=== PATIENT | female | born 1965 | race Caucasian/White ===

== ENCOUNTER → 2022-10-19 08:13 | Outpatient (BNVA) | payer OTHER, SELFPAY | PROVIDERS: PCP Internal Medicine; Visit Provider Internal Medicine Rheumatology | DX: Z13.89 Encounter for screening for other disorder (principal) ==

== ENCOUNTER 2023-07-26 19:20 | Inpatient (IN) | payer OTHER, SELFPAY ==
[2023-07-26] VITALS (18 sets, daily range): BP systolic 119–134; BP diastolic 56–88; PULSE 63–86; RESP 12–20; TEMP 36.6–36.8; O2SAT 96–100; BMI 24.7
--- NOTE | ~2023-07-26 | CT_ITS ---
EXAMINATION: CT ANGIOGRAM HEAD CT ANGIOGRAM NECK CLINICAL INFORMATION: Reason for Exam l mca cva COMPARISON: Earlier noncontrast head CT TECHNIQUE: Initial noncontrast freelance art director imaging of the head and neck was performed. Comparison is made with noncontrast head CT from earlier today. Test bolus sequences followed by intravenous administration 70 mL of Omnipaque 350. Helical imaging was performed in the axial plane from the aortic arch to the skull vertex. Delayed postcontrast imaging of the head was also performed. The data was processed at the instrument technologist's workstation for generation of MIP sequences. Angled MIPs and volume rendered reformatted images were also generated at an offline 3D workstation. Stenoses are assessed in accordance with NASCET criteria unless otherwise indicated. DLP: 1442.56 mGy-cm This CT examination was performed using dose optimization techniques as appropriate, variously including the following: *Automated exposure control. *Adjustment of mA and/or kV according to patient size (this includes techniques or standardized protocols for targeted exams where dose is matched to indication/reason for exam; i.e. extremities or head). *Use of iterative reconstruction technique. FINDINGS: CT Head: There is no evidence of acute intracranial hemorrhage or edematous territorial infarction. A few foci of hypoattenuation in the periventricular and deep white matter are consistent with mild microangiopathy. Chen-white matter differentiation is preserved. The ventricles are normal in size and configuration. No evidence for obstructive hydrocephalus. No abnormal mass effect or midline shift. No extra-axial fluid collections. No pathologic intra-axial enhancement or regional oligemia. No acute soft tissue or osseous abnormalities. The mastoid air cells and paranasal sinuses are clear. CT Neck: The thyroid gland and remaining cervical soft tissues are within normal limits. Mild degenerative changes of the cervical spine. Chronic appearing mild compression deformity of the T2 superior endplate. CT Upper Chest: There is mild centrilobular emphysema and biapical scarring. There is circumferential wall thickening of the upper thoracic esophagus. Neck CTA: Aortic Arch: Normal contour and caliber. Classic 3 vessel branching pattern of the aortic arch. Great Vessel Origins: No significant stenosis of the branch origins. Right Common Carotid Artery: No focal stenosis or occlusion. Cervical Right Internal Carotid Artery: Normal opacification without focal stenosis or occlusion. Left Common Carotid Artery: No focal stenosis or occlusion. Cervical Left Internal Carotid Artery: Mild calcific atherosclerotic disease of the carotid bulb and proximal internal carotid artery without flow-limiting stenosis. Cervical Right Vertebral Artery: No focal stenosis or occlusion. Cervical Left Vertebral Artery: Dominant. No focal stenosis or occlusion. Brain CTA: Intracranial Internal Carotid Arteries: No focal stenosis or occlusion. Right Anterior Cerebral Artery: Normal A1 segment. Normal opacification of the distal KAELA segments. Left Anterior Cerebral Artery: Normal A1 segment. Normal opacification of the distal KAELA segments. Anterior Communicating Artery: Normal. Right Middle Cerebral Artery: Normal M1 segment of the MCA without focal stenosis or occlusion. Normal arborization of the distal segments. Left Middle Cerebral Artery: Normal M1 segment of the MCA without focal stenosis or occlusion. Normal arborization of the distal segments. Right Vertebral Artery: Normal V4 segment. Left Vertebral Artery: Normal V4 segment. Basilar Artery: Normal without focal stenosis or occlusion. Normal appearance of the proximal superior cerebellar arteries. Right Posterior Cerebral Artery: Normal P1 segment. Normal opacification of the distal CEMENT DESPATCH OPERATOR segments. Left Posterior Cerebral Artery: Normal P1 segment. Normal opacification of the distal CEMENT DESPATCH OPERATOR segments. Normal opacification of the superior sagittal, straight, transverse, and sigmoid sinuses. CT/CT angio head neck stroke IMPRESSION: 1. No arterial high grade stenosis or large vessel occlusion in the head or neck. 2. Circumferential wall thickening of the upper thoracic esophagus which may reflect esophagitis. Impression #1 was communicated to GONZÁLEZ Norton on 07/26/2023 at 8:11 PM
--- NOTE | ~2023-07-26 | CT_ITS ---
EXAMINATION: CT HEAD WITHOUT CONTRAST (STROKE PROTOCOL) CLINICAL INFORMATION: Stroke protocol. Right-sided weakness. COMPARISON: None available. TECHNIQUE: Contiguous axial imaging was performed from the skull base to vertex without intravenous administration of contrast. This CT examination was performed using dose optimization techniques as appropriate, variously including the following: *Automated exposure control. *Adjustment of mA and/or kV according to patient size (this includes techniques or standardized protocols for targeted exams where dose is matched to indication/reason for exam; i.e. extremities or head). *Use of iterative reconstruction technique. DLP: 636 mGy-cm FINDINGS: There is no evidence of an extra-axial collection. There is no evidence of intra-axial or extra-axial hemorrhage. The ventricles and extra-axial CSF spaces are appropriate. Chen-white matter differentiation is normal. No mass, mass effect or infarct. Review at bone windows is normal. No skull fracture. Paranasal sinuses, mastoid air cells are clear. CT/CT head for stroke IMPRESSION: Unremarkable exam. This critical result was discussed with Dr. Snyder at 1947 hours on 07/26/2023. It was ascertained that the content and urgency of the report was understood at the time of direct communication.
--- NOTE | ~2023-07-26 | CT_ITS ---
EXAMINATION: CT head/brain wo IV con CLINICAL INFORMATION: Reason for Exam post tpa headache COMPARISON: Same day CT head and CT angiogram of the head and neck TECHNIQUE: Contiguous axial imaging was performed from the skull base to vertex without intravenous contrast. Sagittal and coronal reformatted images were obtained. This CT examination was performed using dose optimization techniques as appropriate, variously including the following: * Automated exposure control * Adjustment of mA and/or kV according to patient size (this includes techniques or standardized protocols for targeted exams where dose is matched to indication/reason for exam; i.e. extremities or head) Use of iterative reconstruction technique DLP: 600.9 mGy-cm mGy-cm FINDINGS: There is no evidence of acute intracranial hemorrhage. No mass-effect or ventricular shift is noted. No acute, territorial loss of east-white differentiation. The ventricles and sulci are appropriate in size and configuration for the patient's stated age. No depressed calvarial fracture. The paranasal sinuses are well-aerated. The mastoid air cells are clear. CT/CT head/brain wo IV con IMPRESSION: No acute intracranial hemorrhage or territorial loss of east-white differentiation.
--- NOTE | ~2023-07-26 | MR_ITS ---
EXAMINATION: MR BRAIN WITHOUT CONTRAST CLINICAL INFORMATION: Stroke post TNK. COMPARISON: Head CT from 07/27/2023. TECHNIQUE: Multiplanar, multisequence imaging of the brain was performed without contrast. FINDINGS: No diffusion abnormalities are identified to suggest an acute or subacute infarct. The ventricles are normal in size. No mass effect or midline shift is seen. Nonspecific mild scattered white matter signal changes may be due to chronic microangiopathy. No extra-axial fluid collections are seen. The brainstem and cerebellum are normal. Incidental small pineal cyst noted. The gradient refocused acquisition demonstrates no pathologic magnetic susceptibility artifact to indicate underlying acute or chronic blood products. The craniovertebral junction and marrow signal are normal. The major intracranial flow voids at the level of the [place] of [place] are preserved. The dural venous sinus flow voids are maintained. The paranasal sinuses are well aerated. There is trace fluid in the mastoid air cells dependently. MR/MR head/brain wo con IMPRESSION: No acute intracranial process. Mild chronic white matter microangiopathy.
--- NOTE | ~2023-07-26 | CT_ITS ---
EXAMINATION: CT HEAD WITHOUT CONTRAST CLINICAL INFORMATION: Stroke, post TNK. COMPARISON: None. TECHNIQUE: Contiguous axial imaging was performed from the skullbase to vertex without intravenous administration of contrast. This CT examination was performed using dose optimization techniques as appropriate, variously including the following: *Automated exposure control *Adjustment of mA and/or kV according to patient size (this includes techniques or standardized protocols for targeted exams where dose is matched to indication/reason for exam; i.e. extremities or head) *Use of iterative reconstruction technique DLP: 767 mGy-cm. FINDINGS: There is no evidence of acute intracranial hemorrhage or territorial infarction. No abnormal mass effect or midline shift is seen. Chen to white matter differentiation is well preserved. No extra-axial fluid collections are identified. Mild generalized brain parenchymal volume loss noted with concordant mild ex vacuo prominence of the ventricles. There is no abnormal attenuation within the brain parenchyma. The osseous structures and soft tissues are normal. The mastoid air cells and visualized portions of the paranasal sinuses are well aerated. CT/CT head/brain wo IV con IMPRESSION: No acute intracranial pathology.
--- NOTE | 2023-07-26 19:22 | ECG_ITS ---
Test Reason : stroke Blood Pressure : / mmHG Vent. Rate : 071 BPM Atrial Rate : 071 BPM P-R Int : 156 ms QRS Dur : 080 ms QT Int : 438 ms P-R-T Axes : 071 054 056 degrees QTc Int : 475 ms Normal sinus rhythm Low voltage QRS RSR' or QR pattern in V1 suggests right ventricular conduction delay Otherwise normal ECG No previous ECGs available Referred By: Yovany Whiting Electronically Signed By:RAMON GONZALEZ MD
--- NOTE | 2023-07-26 19:24 | ED.NEUROSD ---
HPI - Neuro Symptoms/Deficit General Chief Complaint: Stroke Stated Complaint: STOKE ALERT Time Seen by Provider: 07/26/23 19:22 Source: patient and EMS Mode of arrival: EMS History of Present Illness HPI Narrative: Patient is 58 years old with history of hyperlipidemia hypothyroidism Atrovent her diet is an osteoarthritis was with friends having dinner 1844 noticed patient has right facial droop and slurred speech is started feeling dizzy and feeling hot EMS noted right-sided weakness slurred speech and right facial droop POC was 107 blood pressure 118/60 no headache no seizures activity no significant anxiety [id number] Related Data Home Medications Medication Instructions Recorded Confirmed amitriptyline 10 mg tablet 10 mg PO BEDTIME 09/24/22 07/26/23 citalopram 40 mg tablet 40 mg PO DAILY 09/24/22 07/26/23 lorazepam 0.5 mg tablet 0.5 mg PO Q6H PRN Anxiety 09/24/22 07/26/23 multivitamin with minerals 1 cap PO DAILY 09/24/22 07/26/23 levothyroxine 112 mcg tablet 112 mcg PO DAILY 07/26/23 07/26/23 Allergies Allergy/AdvReac Type Severity Reaction Status Date / Time Sulfa (Sulfonamide Allergy Intermediate HIVES Verified 07/26/23 21:08 Antibiotics) [SULFA (SULFONAMIDE ANTIBIOTICS)] trazodone Allergy Unknown Unknown Verified 10/19/22 08:21 Review of Systems Review of Systems: Yes all other systems are reviewed and are negative [facility] Past Medical History Medical History Mitral valve regurgitation Reactive airway disease Insomnia Chronic pain Anxiety and depression Panic disorder Hypothyroidism Autoimmune thyroiditis Hyperlipidemia Surgical History Hx of vaginal hysterectomy Family History Family History Mother Emphysema of lung Arthritis Father Myocardial infarct Maternal Grandmother Arthritis CVA (cerebral vascular accident) Maternal Grandfather Lung cancer Myocardial infarct Social History Social History Household Members: Spouse Housing: Condominium Do you presently have visiting nurse or other home services: No Alcohol intake: never Patient Tobacco Use Status: Former Tobacco user Years Smoked: Quit 4 years ago Smoked in Last 30 Days: No e-Cigarette/Vaping Use: Never Used Use of substances other than those prescribed or required for medical reasons: No Have you been hit, kicked, punched, or otherwise hurt by someone within the past year? 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 Oriented X3. No acute distress. Eyes: PERRLA, No Nystagmus ENT: Pharynx normal. Oral Mucosa moist Neck: Normal inspection. Neck supple. CVS: Normal heart rate and rhythm. Pulses normal. Respiratory: No respiratory distress. Equal air entry bilateral, no wheezing/rales/rhonchi Abdomen: Soft and nontender. Bowel sounds are present, no mass palpable, no CVA tenderness Skin: Skin warm and dry. Normal skin color. Normal skin turgor. Extremities: No lower extremity edema. No calf tenderness Neuro: Expressive aphasia right facial droop right-sided weakness 4/5 Medications Administered Generic Name Dose Route Start Last Admin Trade Name Freq PRN Reason Stop Dose Admin Sodium Chloride 3 ml 07/27/23 00:00 07/27/23 01:32 0.9 % Sodium Chloride Flush 3 Ml Syringe IVFLUSH 3 ml QSHIFT ASHLEY Administration Discontinued Medications Generic Name Dose Route Start Last Admin Trade Name Freq PRN Reason Stop Dose Admin Potassium Chloride 10 meq in 100 mls @ 100 mls/hr 07/26/23 22:45 07/27/23 01:32 Potassium Chloride/H20 IV 07/27/23 00:44 Infused Q1H ASHLEY Infusion Iohexol 70 ml 07/26/23 19:46 07/26/23 19:46 Iohexol 350 Mg/Ml 100 Ml Infus..Btl IV 07/26/23 19:47 70 ml ONCE ONE Administration Tenecteplase 17 mg 07/26/23 19:31 07/26/23 19:45 Tenecteplase 50 Mg/10 Ml Kit IVPUSH 07/26/23 19:32 17 mg ONCE ONE Administration Medical Decision Making Medical Decision Making [facility] Narrative: 1929 Patient with acute onset of right-sided weakness and expressive aphasia and facial droop plain CT scan is negative acute bleed case discussed Dr. Osborne neurology advise TNK CTA head and neck pending 2044 patient status post TNK , CTA head and neck negative for LVO feeling much better speech is more clear now no facial droop noticed but still has 4/5 strength on the right side 5/5 in the left side will admit to ICU Differential Diagnosis Differential Diagnoses: The differential diagnosis associated with the presentation includes Acute CVA/ICH/brain mass/carotid artery stenosis Admission/Observation Consideration of admission/observation: Escalation of care including admission/observation considered Consult Healthcare Provider Management of the patient was discussed with: Reacher Lab Data [facility] Lab Attestation statement: I reviewed the patient's lab results. 07/26/23 19:42 07/26/23 19:42 Labs: Lab Results 07/26/23 07/26/23 07/26/23 Range/Units 19: 19:25 19:41 WBC (4.8-10.8) X10*3/uL RBC (4.20-5.50) X10*6/uL Hgb (12.0-16.0) g/dl Hct (37.0-47.0) % MCV (80.0-98.0) fL MCH (27.0-33.0) pg MCHC (31.0-35.0) g/dl RDW (11.0-16.0) % Plt Count (160-400) X10*3/uL MPV (9.4-12.3) fL Immature Gran % (Auto) (0.0-0.4) % Neut % (Auto) (45-73) % Lymph % (Auto) (20-40) % [place] % (Auto) (2-11) % Eos % (Auto) (0-4) % Baso % (Auto) (0-2) % Lymph # (Auto) (1.2-4.9) X10*3/uL [place] # (Auto) (0.1-1.2) X10*3/uL Eos # (Auto) (0.0-0.4) X10*3/uL Baso # (Auto) (0.0-0.2) X10*3/uL Abs Immat Gran (auto) (0.00-0.03) X10*3/uL Absolute Neuts (auto) (2.0-8.3) x10*3/uL Absolute Nucleated RBC (0.0-0.012) X10*3/uL Nucleated RBC % (auto) (0.0-0.2) /100WBC PT (11.1-13.3) SEC Whole Blood PT 13.9 H (11.1-13.5) sec INR (0.9-1.1) Whole Blood INR 1.0 (0.9-1.1) APTT (26.0-36.4) SEC Sodium (135-145) mmol/L Potassium (3.3-5.1) mmol/L Chloride (96-108) mmol/L Carbon Dioxide (22-29) mmol/L Anion Gap (12-20) BUN (9-16) mg/dL Creatinine (0.5-1.4) mg/dL Estim Creat Clear Calc Estimated GFR POC Glucose 107 (60-115) mg/dL Random Glucose (60-115) mg/dL Calcium (8.4-10.2) mg/dL Total Creatine Kinase (26-140) U/L Troponin I High Sens < 2.7 (<3.5-17.0) ng/L 07/26/23 Range/Units 19:42 WBC 9.9 (4.8-10.8) X10*3/uL RBC 4.17 L (4.20-5.50) X10*6/uL Hgb 12.6 (12.0-16.0) g/dl Hct 37.2 (37.0-47.0) % MCV 89.2 (80.0-98.0) fL MCH 30.2 (27.0-33.0) pg MCHC 33.9 (31.0-35.0) g/dl RDW 13.0 (11.0-16.0) % Plt Count 271 (160-400) X10*3/uL MPV 10.5 (9.4-12.3) fL Immature Gran % (Auto) 0.6 H (0.0-0.4) % Neut % (Auto) 39.5 L (45-73) % Lymph % (Auto) 48.8 H (20-40) % [place] % (Auto) 7.6 (2-11) % Eos % (Auto) 2.7 (0-4) % Baso % (Auto) 0.8 (0-2) % Lymph # (Auto) 4.8 (1.2-4.9) X10*3/uL [place] # (Auto) 0.8 (0.1-1.2) X10*3/uL Eos # (Auto) 0.3 (0.0-0.4) X10*3/uL Baso # (Auto) 0.1 (0.0-0.2) X10*3/uL Abs Immat Gran (auto) 0.06 H (0.00-0.03) X10*3/uL Absolute Neuts (auto) 3.9 (2.0-8.3) x10*3/uL Absolute Nucleated RBC 0.000 (0.0-0.012) X10*3/uL Nucleated RBC % (auto) 0.0 (0.0-0.2) /100WBC PT 11.1 (11.1-13.3) SEC Whole Blood PT (11.1-13.5) sec INR 0.9 (0.9-1.1) Whole Blood INR (0.9-1.1) APTT 28.9 (26.0-36.4) SEC Sodium 139 (135-145) mmol/L Potassium 3.4 (3.3-5.1) mmol/L Chloride 100 (96-108) mmol/L Carbon Dioxide 29 (22-29) mmol/L Anion Gap 13 (12-20) BUN 17 H (9-16) mg/dL Creatinine 0.73 (0.5-1.4) mg/dL Estim Creat Clear Calc 76.7 Estimated GFR > 60 POC Glucose (60-115) mg/dL Random Glucose 108 (60-115) mg/dL Calcium 9.4 (8.4-10.2) mg/dL Total Creatine Kinase 65 (26-140) U/L Troponin I High Sens (<3.5-17.0) ng/L Independent Interpretation I performed an independent interpretation of an: EKG and CT Scan Interpretation: Normal sinus rhythm heart rate 71 beats per minute normal interval normal axis no acute ST T wave changes no acute ischemia Radiology Impression Discussion of test interpretation with radiology: I have reviewed the radiologist's reading. Radiologist Impression: CT/CT angio head neck stroke IMPRESSION: 1. No arterial high grade stenosis or large vessel occlusion in the head or neck. 2. Circumferential wall thickening of the upper thoracic esophagus which may reflect esophagitis. Impression #1 was communicated to GONZÁLEZ Norton on 07/26/2023 at 8:11 PM NIH Stroke Scale Internal: Initial- Upon Arrival Time: 19:20 Level of Consciousness: Alert Level of Consciousness Questions: Answers neither question correctly Level of Consciousness Commands: Performs neither task correctly Best Gaze: Normal Visual: No visual loss Facial Palsy: Minor paralyis Motor Arm (Right): Drift Motor Arm (Left): No drift Motor Leg (Right): Drift Motor Leg (Left): No drift Limb Ataxia: Absent Sensory: Normal Best Language: Mild to moderate aphasia Dysarthia: Normal Extinction and Inattention: No abnormality Score: 8 Critical Care Time Critical Care Time Critical Care Time: Yes Total Critical Care Time: 50 Attestation: The patient was critically ill with a high probability of imminent or life threatening deterioration. I spent greater than 60 minutes of discontinuous time evaluating the patient,delivering critical care at the bedside, discussing and evaluating pertinent data with consultants. Critical care time does not include time spent performing separately billable procedures or teaching. Total time spent performing critical care was 50 minutes. Discharge Plan Discharge Clinical Impression: Cerebrovascular accident Patient Disposition: Admitted As Inpatient Interventions: Admission Worksheet (ED) Last Done: 07/27/23 00:05 Discharge Date/Time: 07/27/23 00:38
[2023-07-26 19:28] LABS: Prothrombin Time Whole Bld POC 13.9 sec (11.1-13.5)
[2023-07-26] MEDS: Tenecteplase 50 MG/10 ML KIT 17 MG IVPUSH (19:45)
[2023-07-26] MEDS: iohexoL 350 MG/ML 100 ML INFUS..BTL 70 ML IV (19:46)
[2023-07-26 19:49] LABS: MANUAL DIFF FLAG NO
[2023-07-26 19:57] LABS: Glucose, Whole Blood 107 mg/dL (60-115)
--- NOTE | 2023-07-26 19:57 | MHC.EDTECH ---
Patient came in by EMS,patient weighed right away, POC and Stroke INR obtained. Vitals and EKG taken while on pause on CT machine,then placed on the cardiac monitor technician.Patient arrived in room and changed into hospital attire,and vitals are going at this time. Family is at bedside
[2023-07-26 20:05] LABS: Anion Gap 13 (12-20); Blood Urea Nitrogen 17 mg/dL (9-16); Calcium 9.4 mg/dL (8.4-10.2); Carbon Dioxide 29 mmol/L (22-29); Chloride 100 mmol/L (96-108); Creatinine Clr Calc Pharmacy 76.7; Estimated Glomerular Filt Rate > 60; Glucose Random 108 mg/dL (60-115); Potassium 3.4 mmol/L (3.3-5.1); Sodium 139 mmol/L (135-145)
--- NOTE | 2023-07-26 20:06 | PHA.MEDREC ---
Pharmacy Consult ? Medication Reconciliation Pharmacy has completed the medication reconciliation. Family confirmed medications. Jerilyn Jeffers, LaurenD
[2023-07-26 20:16] LABS: INTERNATIONAL NORM RATIO 0.9 (0.9-1.1); Prothrombin Time 11.1 SEC (11.1-13.3)
[2023-07-26 20:18] LABS: Partial Thromboplastin Time 28.9 SEC (26.0-36.4)
[2023-07-26 20:28] LABS: Stroke Lab Use COMPLETE
[2023-07-26 20:33] LABS: Basophils Absolute Auto 0.1 X10*3/uL (0.0-0.2); Basophils Percent Auto 0.8 % (0-2); Eosinophils Absolute Auto 0.3 X10*3/uL (0.0-0.4); Eosinophils Percent Auto 2.7 % (0-4); Hematocrit 37.2 % (37.0-47.0); Hemoglobin 12.6 g/dl (12.0-16.0); Imm Gran Abs Auto 0.06 X10*3/uL (0.00-0.03); Imm Gran Pct Auto 0.6 % (0.0-0.4); Lymphocytes Absolute Auto 4.8 X10*3/uL (1.2-4.9); Lymphocytes Percent Auto 48.8 % (20-40); Mean Corpuscular HGB Conc 33.9 g/dl (31.0-35.0); Mean Corpuscular Hemoglobin 30.2 pg (27.0-33.0); Mean Corpuscular Volume 89.2 fL (80.0-98.0); Mean Platelet Volume 10.5 fL (9.4-12.3); Monocytes Absolute Auto 0.8 X10*3/uL (0.1-1.2); Monocytes Percent Auto 7.6 % (2-11); Neutrophils Absolute Auto 3.9 x10*3/uL (2.0-8.3); Neutrophils Percent Auto 39.5 % (45-73); Platelet Count 271 X10*3/uL (160-400); Red Blood Count 4.17 X10*6/uL (4.20-5.50); White Blood Count 9.9 X10*3/uL (4.8-10.8)
--- NOTE | 2023-07-26 21:02 | PC.NURSE ---
R side weakness noted at exam, pt reports having difficulty recalling words , however denies pain.
[2023-07-26 21:38] LABS: Troponin-I High Sensitivity < 2.7 ng/L (<3.5-17.0)
--- NOTE | 2023-07-26 21:42 | MHC.EDTECH ---
Hourly rounds and vitals completed,patient is resting comfortably at this time and is at bedside
--- NOTE | 2023-07-26 22:21 | PC.NURSE ---
spoke to ICU provider, will hold off on marcano at this time due to TNK administration. Provider will put in orders however ICU nurse will not be in until 2300 and then will call for report
--- NOTE | 2023-07-26 22:26 | P.HPCC_ITS ---
History of Present Illness Date of Service: 07/26/23 Attending physician on admission: Mick Keith Chief Complaint: stroke symptoms The patient is a 58 years old female with history of hyperlipidemia,? hypothyroidism, mitral regurgitation, who presented with stroke symptoms. Family noticed right facial droop and slurred speech, she also started feeling dizzy and feeling hot. EMS noted right-sided weakness slurred speech and right facial droop POC was 107 blood pressure 118/60 no headache no seizures activity no significant anxiety? In the emergency room, patient vitals are stable. Laboratory data with no significant abnormalities.? Neurology,? ? consulted by emergency physician,? okay to get TNK.? TNK administer at 1945 Review of Systems 2 Review of Systems: as per HPI Yes all other systems are reviewed and are negative FORMERLY [facility] Past Medical History Medical History Mitral valve regurgitation Reactive airway disease Insomnia Chronic pain Anxiety and depression Panic disorder Hypothyroidism Autoimmune thyroiditis Hyperlipidemia Family History Family History Mother Emphysema of lung Arthritis Father Myocardial infarct Maternal Grandmother Arthritis CVA (cerebral vascular accident) Maternal Grandfather Lung cancer Myocardial infarct Surgical History Surgical History Hx of vaginal hysterectomy Social History Social History Household Members: Spouse Housing: Condominium Do you presently have visiting nurse or other home services: No Alcohol intake: never Patient Tobacco Use Status: Former Tobacco user Years Smoked: Quit 4 years ago Smoked in Last 30 Days: No e-Cigarette/Vaping Use: Never Used Use of substances other than those prescribed or required for medical reasons: No Have you been hit, kicked, punched, or otherwise hurt by someone within the past year? 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 Meds Allergies Allergy/AdvReac Type Severity Reaction Status Date / Time Sulfa (Sulfonamide Allergy Intermediate HIVES Verified 07/26/23 21:08 Antibiotics) [SULFA (SULFONAMIDE ANTIBIOTICS)] trazodone Allergy Unknown Unknown Verified 10/19/22 08:21 Home Medications Medication Instructions Recorded Confirmed Last Taken Type amitriptyline 10 mg tablet 10 mg PO BEDTIME 09/24/22 07/26/23 07/25/23 History citalopram 40 mg tablet 40 mg PO DAILY 09/24/22 07/26/23 07/26/23 History lorazepam 0.5 mg tablet 0.5 mg PO Q6H PRN Anxiety 09/24/22 07/26/23 Unknown History multivitamin with minerals 1 cap PO DAILY 09/24/22 07/26/23 07/26/23 History levothyroxine 112 mcg tablet 112 mcg PO DAILY 07/26/23 07/26/23 07/26/23 History Physical Exam 2 Vital Signs: Vital Signs: Last Vital Signs Temp 98.0 F 07/26/23 21:11 Pulse 80 07/26/23 21:33 Resp 16 07/26/23 21:33 BP 123/74 07/26/23 21:33 Pulse Ox 96 07/26/23 21:33 O2 Del Method Room Air 07/26/23 21:33 BMI result Body Mass Index 24.7 Constitutional: No acute distress, well-developed, alert and oriented x 3. Mild expressive aphagia noted HEENT: No hearing loss, sneezing, congestion, runny nose or sore throat. No vision change or blurred visio Respiratory:? Lung CTA bilaterally, no wheezes, rhonchi, or rales Cardiac: RRR, holosystolic murmur. Pulses palpable and equal in all extremities Gastrointestinal: +BS, non-tender to palpation, non-distended Neurologic:? Neurological exam,? The patient is alert, attentive, and oriented. expressive aphasia. Mild right sided droop. .? Motor:There is a pronator drift of the out-stretched Right arm. Weakness of the right upper extremity compared to the left. Muscle bulk and tone are normal. Sensory:Decreased sensation to right sided upper extremity.? Coordination:Rapid alternating movements and fine finger movements are intact. There are no abnormal or extraneous movements Strengh: 4/5 Right upper and lower extremity. 5/5 left extremities Musculoskeletal: No gross deformities, Skin: No rash/lesion Psych: Mood appropriate to situation Results Labs 07/27/23 05:44 07/27/23 05:44 Labs: Laboratory Results - last 24 hr 07/26/23 07/26/23 07/26/23 19: 19:25 19:42 MCV 89.2 MCH 30.2 MCHC 33.9 RDW 13.0 Plt Count 271 MPV 10.5 Immature Gran % (Auto) 0.6 H Neut % (Auto) 39.5 L Lymph % (Auto) 48.8 H [place] % (Auto) 7.6 Eos % (Auto) 2.7 Baso % (Auto) 0.8 Lymph # (Auto) 4.8 [place] # (Auto) 0.8 Eos # (Auto) 0.3 Baso # (Auto) 0.1 Abs Immat Gran (auto) 0.06 H Absolute Neuts (auto) 3.9 Absolute Nucleated RBC 0.000 Nucleated RBC % (auto) 0.0 PT 11.1 Whole Blood PT 13.9 H INR 0.9 Whole Blood INR 1.0 APTT 28.9 Anion Gap 13 Estim Creat Clear Calc 76.7 Estimated GFR > 60 POC Glucose 107 Random Glucose 108 Calcium 9.4 Total Creatine Kinase 65 Imaging Radiologist's Impressions: Impressions Head CT 07/26/23 19:30 IMPRESSION: Unremarkable exam. This critical result was discussed with Dr. Snyder at 1947 hours on 07/26/2023. It was ascertained that the content and urgency of the report was understood at the time of direct communication. Head/Neck CTA 07/26/23 19:47 IMPRESSION: 1. No arterial high grade stenosis or large vessel occlusion in the head or neck. 2. Circumferential wall thickening of the upper thoracic esophagus which may reflect esophagitis. Impression #1 was communicated to GONZÁLEZ Norton on 07/26/2023 at 8:11 PM Assessment and Plan (1) Cerebrovascular accident: Status: Acute Plan Neuro:? CVA: Patient presented with? right-sided weakness and right facial droop.? Initial CT showed no acute infarct/bleed.? She is status post TNK.? Will continue to follow post TNK protocol.? Follow Neurology recommendations.?? Cardiac: ?No acute issues? Pulmonary: ?No acute issues Renal:?No acute issues Endo:? No acute issues.? GI: No acute issues. heme/onc: No acute issues. Misc:? no acute issues DVT: No DVT anticoagulation for 24hr post tPA Diet:? NPO per protocol? Critical care time: x? 30 minutes of critical care time CODE STATUS:? FULL Case discussed with? attending Dr. Keith?
--- NOTE | 2023-07-26 22:43 | PC.NURSE ---
attempted second iv placement pt did not want me to go in area, will leave one for now
[2023-07-26] MEDS: Potassium Chloride/H20 10 MEQ/100 ML PIGGYBACK 100 MEQ IV (23:01)
--- NOTE | 2023-07-26 23:12 | MHC.EDTECH ---
Hourly rounds,vitals and belonging list completed and copy placed in chart. Patient is resting comfortably at this time and call landeros within reach.
[2023-07-27] VITALS (20 sets, daily range): BP systolic 103–136; BP diastolic 50–75; PULSE 60–87; RESP 11–20; TEMP 36.2–37.4; O2SAT 97–100; BMI 24.7
[2023-07-27] MEDS: 0.9 % Sodium Chloride Flush 3 ML SYRINGE IVFLUSH ×4 (01:32→20:38)
[2023-07-27] MEDS: Potassium Chloride/H20 10 MEQ/100 ML PIGGYBACK 100 MEQ IV (01:44)
[2023-07-27] MEDS: LORazepam 2 MG/ML VIAL 0.5 MG IVPUSH (05:28)
[2023-07-27 06:05] LABS: MANUAL DIFF FLAG NO
[2023-07-27 06:09] LABS: Basophils Absolute Auto 0.1 X10*3/uL (0.0-0.2); Basophils Percent Auto 0.7 % (0-2); Eosinophils Absolute Auto 0.2 X10*3/uL (0.0-0.4); Hematocrit 37.7 % (37.0-47.0); Hemoglobin 12.4 g/dl (12.0-16.0); Imm Gran Abs Auto 0.03 X10*3/uL (0.00-0.03); Imm Gran Pct Auto 0.4 % (0.0-0.4); Lymphocytes Absolute Auto 2.2 X10*3/uL (1.2-4.9); Lymphocytes Percent Auto 25.9 % (20-40); Mean Corpuscular HGB Conc 32.9 g/dl (31.0-35.0); Mean Corpuscular Hemoglobin 30.1 pg (27.0-33.0); Mean Corpuscular Volume 91.5 fL (80.0-98.0); Mean Platelet Volume 10.5 fL (9.4-12.3); Monocytes Absolute Auto 0.7 X10*3/uL (0.1-1.2); Monocytes Percent Auto 8.3 % (2-11); Neutrophils Absolute Auto 5.4 x10*3/uL (2.0-8.3); Neutrophils Percent Auto 62.7 % (45-73); Platelet Count 255 X10*3/uL (160-400); Red Blood Count 4.12 X10*6/uL (4.20-5.50); Red Cell Distribution Width 12.9 % (11.0-16.0); White Blood Count 8.6 X10*3/uL (4.8-10.8)
[2023-07-27 06:32] LABS: Alanine Aminotransferase 13 U/L (0-31); Albumin Level 4.1 g/dL (3.5-5.0); Alkaline Phosphatase 59 U/L (39-117); Anion Gap 12 (12-20); Aspartate Amino Transferase 17 U/L (5-31); Bilirubin Total 0.3 mg/dL (0.0-1.0); Blood Urea Nitrogen 15 mg/dL (9-16); Calcium 9.1 mg/dL (8.4-10.2); Carbon Dioxide 25 mmol/L (22-29); Chloride 105 mmol/L (96-108); Cholesterol 270 mg/dL (<200); Creatinine Clr Calc Pharmacy 90.3; Estimated Glomerular Filt Rate > 60; Glucose Random 103 mg/dL (60-115); HDL Cholesterol 73 mg/dL (>40); LDL Cholesterol Calculated 183 mg/dL (<100); Potassium 3.5 mmol/L (3.3-5.1); Sodium 138 mmol/L (135-145); Triglycerides 74 mg/dL (<150)
[2023-07-27 06:47] LABS: Thyroid Stimulating Hormone 7.08 uIU/mL (0.32-4.0)
--- NOTE | 2023-07-27 06:49 | PC.NURSE ---
Pt arrived to ICU from ED at approx 0030. Upon initial assessment- pt A+Ox4, pleasant. Mild aphasia, R-sided facial droop, and mild R-sided weakness. Pupils 4mm equal/ reactive. Denies any pain. NSR on tele, HR 60s. Vital signs WNL. Lungs clear, denies SOB, on RA. Pt NPO pending formal swallow eval. +BS, denies N/V. Loose BM x2. Skin intact. Pt on bedrest post TNK. Bed in lowest position. Call landeros within reach.
--- NOTE | 2023-07-27 07:00 | CA_ITS ---
Transthoracic Echocardiogram Patient (Last, First, Middle): Bonny Sagastume, Gender: Female Date of : 1965 Age: 58 Procedure Date: 07/27/2023 Procedure Type: Transthoracic Echocardiogram Location: ICU Height: 167.64 cm Weight: 69.4 kg BSA: 1.78 m2 Heart Rate: 68 bpm BP: 115 / 70 mmHg Needle Process Felt Goods Supervisor: MARLA Referring MD: Tiffany Kumar NP Symptoms: stroke post TNK Study Quality: Adequate ECG Rhythm: Sinus Conclusions: - The left ventricular systolic function is normal. The calculated ejection fraction is 62% by biplane method. - There is no evidence of interatrial shunt by agitated saline. - No obvious valvular pathology seen on this study. Findings Left Ventricle Normal left ventricular cavity size. The left ventricular systolic function is normal. The calculated ejection fraction is 62% by biplane method. There is no evidence of regional wall motion abnormalities. Evidence suggests grade I (mild) diastolic dysfunction. LV peak GLS -21.3%. Right Ventricle Normal right ventricular cavity size and systolic function. Atria Both atria are normal in size. There is no evidence of interatrial shunt by agitated saline. (with rest and valsalva). Aortic Valve The aortic valve was not well visualized. There is no aortic valve stenosis. There is no aortic valve regurgitation. Mitral Valve The mitral valve appears normal. There is trace mitral valve regurgitation. There is no mitral valve stenosis. Pulmonic Valve The pulmonic valve is likely normal. Tricuspid Valve Normal tricuspid valve structure. There is no tricuspid valve regurgitation. There is no evidence of pulmonary hypertension. Great Vessels The asc aorta is normal in size. Venous The inferior vena cava is normal in size and collapses greater than 50% with inspiration. Pericardium/Pleural There is no evidence of pericardial effusion. Prior Study Comparison No prior study available for comparison. Recommendations, Care & Conclusions No obvious valvular pathology seen on this study. Measurements 2D Linear Measurements IVSd: 0.69 0.6-0.9/0.6-1.0 cm LVIDd: 5.04 3.9-5.3/4.2-5.9 cm LVIDd Index: 2.83 2.4-3.2/2.2-3.1 cm/m2 LVIDs: 2.53 2.0-3.6 cm LVPWd: 0.83 0.7-1.1 cm LA Diam: 3.40 2.7-3.8/3.0-4.0 cm LAIDs Index: 1.91 1.5-2.3 cm/m2 LV Mass: 161.39 67-162/88-224 g LV Mass Index: 90.67 43-95/49-115 g/m2 LVOT Diam: 2.00 3.0+(-)1.3 cm 2D Systolic Function EF 4C: 65.10 >55% EF 2C: 57.80 >55% EF BiP: 62.10 >55% Mitral Valve MV Pk E: 0.68 MV PK A: 1.05 MV Decel Time: 238.00 E/A: 0.60 E'Medial: 6.20 E/E' Med: 11.00 PHT: 70.00 MVA PHT: 3.14 Decel [place]: 2.86 Aortic Valve AoV Pk Eddi: 1.43 AoV Mn Eddi: 0.95 AoV VTI: 0.30 AoV Pk Grad: 8.00 Aov Mn Grad: 4.00 JULIANA Cont.VTI: 2.34 LVOT LVOT Pk Eddi: 1.13 LVOT Mn Eddi: 0.74 LVOT VTI: 0.22 LVOT Pk Grad: 5.00 LVOT Mn Grad: 3.00 LVOT Diam: 2.00 LVOT Area: 3.14 Diastolic Function MV Pk E: 0.68 MV Pk A: 1.05 E/A: 0.60 E'Medial: 6.20 E/E' Med: 11.00 Right Ventricle TAPSE (mm): 24.40 TVS' Eddi: 12.90 Tricuspid Valve TR Pk Eddi: 1.96 TR Pk Grad: 15.00 RA Press: 3.00 RVSP: 18.00 Great Vessels Aorta Sinus of Valsalva: 2.80 2.0-3.5 cm Ao Asc: 2.80 2.1-3.4 cm Pulmonary Valve PV Pk Eddi: 0.65 Peak PV Grad: 2.00 Updated in Other Vendor System with Status of Final Terrell Mancia MD electronically signed on 07/27/2023 12:51:40 PM with status of Final
[2023-07-27 07:30] LABS: Glucose, Whole Blood 81 mg/dL (60-115)
--- NOTE | 2023-07-27 10:02 | MHC.CM.PN ---
This CM met with patient and spouse, Gael, at bedside in ICU. 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 Completed HCP with patient and patient named agents 1) Gael Al [phone] and 2) Betty Al [phone]. PCP: GONZÁLEZ Miller DP: Pending PT eval. Home with services & family transport vs rehab via BLS. Patient is open to either option and has no preferences for agencies/facilities at this time. CM will continue to follow.
--- NOTE | 2023-07-27 11:47 | PM.CCPN ---
Subjective Subjective Date of Service: 07/27/23 Interval History: 58-year-old lady with underlying history hypertension, hyperlipidemia asthma admitted on 07/26/2023 with acute onset of right-sided weakness. Initial CT head with no intracranial bleeding. Neurology recommended thrombolytics. Patient administered tenecteplase and monitored in the intensive care unit thereafter with significant improvement of her right-sided weakness. No events overnight. Critical Care Time (minutes): 0 Physical Exam Vital Signs: Vital Signs: Last Vital Signs Temp 98.5 F 07/27/23 08:00 Pulse 69 07/27/23 11:00 Resp 15 07/27/23 11:00 BP 115/70 07/27/23 11:00 Pulse Ox 100 07/27/23 11:00 O2 Del Method Room Air 07/27/23 11:00 BMI result Body Mass Index 24.7 Const: General: no acute distress, alert and awake Eyes: Sclerae: sclerae normal EOM: EOMs intact bilaterally Neck: Neck: Yes no lymphadenopathy, Yes trachea midline and Yes supple Resp: Effort & Inspection: normal respiratory effort and no respiratory distress Auscultation: clear to auscultation bilaterally Cardio: Rate: regular rate Rhythm: regular rhythm Heart sounds: no gallops, no murmurs and no rubs GI: Palpation (GI): Soft to palpation and Other GI palpation findings present ( Nontender) Auscultation: normal bowel sounds Neuro: Other: Left-sided strength 5/5, right sided 4/5, mild facial droop Extrem: General: Yes no pedal edema, No clubbing and No cyanosis Objective Data Labs 07/27/23 05:44 07/27/23 05:44 Labs: Laboratory Results - last 24 hr 07/26/23 07/26/23 07/26/23 19:23 19:25 19:41 WBC RBC Hgb Hct MCV MCH MCHC RDW Plt Count MPV Immature Gran % (Auto) Neut % (Auto) Lymph % (Auto) [place] % (Auto) Eos % (Auto) Baso % (Auto) Lymph # (Auto) [place] # (Auto) Eos # (Auto) Baso # (Auto) Abs Immat Gran (auto) Absolute Neuts (auto) Absolute Nucleated RBC Nucleated RBC % (auto) PT Whole Blood PT 13.9 H INR Whole Blood INR 1.0 APTT Sodium Potassium Chloride Carbon Dioxide Anion Gap BUN Creatinine Estim Creat Clear Calc Estimated GFR POC Glucose 107 Random Glucose Calcium Total Bilirubin AST ALT Alkaline Phosphatase Total Creatine Kinase Troponin I High Sens < 2.7 Total Protein Albumin Triglycerides Cholesterol LDL Cholesterol, Calc HDL Cholesterol TSH 07/26/23 07/27/23 07/27/23 19:42 05:44 07:26 WBC 9.9 8.6 RBC 4.17 L 4.12 L Hgb 12.6 12.4 Hct 37.2 37.7 MCV 89.2 91.5 MCH 30.2 30.1 MCHC 33.9 32.9 RDW 13.0 12.9 Plt Count 271 255 MPV 10.5 10.5 Immature Gran % (Auto) 0.6 H 0.4 Neut % (Auto) 39.5 L 62.7 Lymph % (Auto) 48.8 H 25.9 [place] % (Auto) 7.6 8.3 Eos % (Auto) 2.7 2.0 Baso % (Auto) 0.8 0.7 Lymph # (Auto) 4.8 2.2 [place] # (Auto) 0.8 0.7 Eos # (Auto) 0.3 0.2 Baso # (Auto) 0.1 0.1 Abs Immat Gran (auto) 0.06 H 0.03 Absolute Neuts (auto) 3.9 5.4 Absolute Nucleated RBC 0.000 0.000 Nucleated RBC % (auto) 0.0 0.0 PT 11.1 Whole Blood PT INR 0.9 Whole Blood INR APTT 28.9 Sodium 139 138 Potassium 3.4 3.5 Chloride 100 105 Carbon Dioxide 29 25 Anion Gap 13 12 BUN 17 H 15 Creatinine 0.73 0.62 Estim Creat Clear Calc 76.7 90.3 Estimated GFR > 60 > 60 POC Glucose 81 Random Glucose 108 103 Calcium 9.4 9.1 Total Bilirubin 0.3 AST 17 ALT 13 Alkaline Phosphatase 59 Total Creatine Kinase 65 Troponin I High Sens Total Protein 7.0 Albumin 4.1 Triglycerides 74 Cholesterol 270 H LDL Cholesterol, Calc 183 H HDL Cholesterol 73 TSH 7.08 H Progress Note: A&P Assessment and plan (1) Cerebrovascular accident: Status: Acute (2) Hyperlipidemia: Status: Acute Plan Assessment: 58-year-old lady admitted with acute treated weakness /CVA, now status post embolic 6 with improvement, but not complete resolution of her right-sided weakness Plan: Neuro: acute severe status post thrombolytics. Neurology service care appreciated. MRI is pending. PT/ OT/ speech therapy. Cardiac: No acute issues. Pulmonary: No acute issues. Renal: No acute issues. Endo: No acute issues. GI: No acute issues. ID: No acute issues Heme/Onc: No acute issues. Psych: No acute issues. Miscellaneous: No acute issues. Prophylaxis: pneumatic compression Diet: pending swallow evaluation Quality Stroke Does the patient have a stroke diagnosis?: Yes Reason for No Anti-thrombotic by Day Two: N/A - Med Ordered VTE Prior VTE?: No VTE Risk Level:: Medical - moderate - high VTE Device Contraindication: N/A - Device Ordered VTE Drug Contraindication: Treatment Not Indicated
[2023-07-27 12:11] LABS: Glucose, Whole Blood 92 mg/dL (60-115)
--- NOTE | 2023-07-27 12:16 | PM.NEUROCN ---
History of Present Illness Data of Consult Service Date: 07/27/23 Primary Care Provider: Scot Santiago PA-C HPI Reason for consult: stroke s/p TNK This is a 58 years old female with history of hyperlipidemia,? hypothyroidism, mitral regurgitation, who presented with stroke symptoms of right facial droop and slurred speech, dizziness and feeling hot. 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 CT and CTA were negative and TNK was administered 75 min after onset. F/U CT negative. MRI pending. Blood pressure 118/60 , no headache no seizures activity no significant anxiety?. Labs negative. Review of Systems Review of Systems: as per HPI Yes all other systems are reviewed and are negative PMFSH Past Medical History Medical History Mitral valve regurgitation Reactive airway disease Insomnia Chronic pain Anxiety and depression Panic disorder Hypothyroidism Autoimmune thyroiditis Hyperlipidemia Family History Family History Mother Emphysema of lung Arthritis Father Myocardial infarct Maternal Grandmother Arthritis CVA (cerebral vascular accident) Maternal Grandfather Lung cancer Myocardial infarct Surgical History Surgical History Hx of vaginal hysterectomy Social History Social History Household Members: Spouse Housing: Condominium Do you presently have visiting nurse or other home services: No Alcohol intake: never Patient Tobacco Use Status: Former Tobacco user Years Smoked: Quit 4 years ago Smoked in Last 30 Days: No e-Cigarette/Vaping Use: Never Used Use of substances other than those prescribed or required for medical reasons: No Currently Displaying Signs/Symptoms of Drug Intoxication Withdrawal: No Have you been hit, kicked, punched, or otherwise hurt by someone within the past year? 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 Meds Allergies Allergy/AdvReac Type Severity Reaction Status Date / Time Sulfa (Sulfonamide Allergy Intermediate HIVES Verified 07/26/23 21:08 Antibiotics) [SULFA (SULFONAMIDE ANTIBIOTICS)] trazodone Allergy Unknown Unknown Verified 10/19/22 08:21 Active Medications: Current Medications Sodium Chloride (0.9 % Sodium Chloride Flush 3 Ml Syringe) 3 ml IVFLUSH [facility] Last Admin: 07/27/23 01:32 Dose: 3 ml Home Medications Medication Instructions Recorded Confirmed Last Taken Type amitriptyline 10 mg tablet 10 mg PO BEDTIME 09/24/22 07/26/23 07/25/23 History citalopram 40 mg tablet 40 mg PO DAILY 09/24/22 07/26/23 07/26/23 History lorazepam 0.5 mg tablet 0.5 mg PO Q6H PRN Anxiety 09/24/22 07/26/23 Unknown History multivitamin with minerals 1 cap PO DAILY 09/24/22 07/26/23 07/26/23 History levothyroxine 112 mcg tablet 112 mcg PO DAILY 07/26/23 07/26/23 07/26/23 History Physical Exam Vital Signs: Vital Signs: Last Vital Signs Temp 98.5 F 07/27/23 08:00 Pulse 70 07/27/23 11:54 Resp 11 L 07/27/23 11:54 BP 111/70 07/27/23 11:54 Pulse Ox 100 07/27/23 11:54 O2 Del Method Room Air 07/27/23 11:54 BMI result Body Mass Index 24.7 Const: General: no acute distress, alert and awake Eyes: Sclerae: sclerae normal EOM: EOMs intact bilaterally Neck: Neck: Yes no lymphadenopathy, Yes trachea midline and Yes supple Resp: Effort & Inspection: normal respiratory effort and no respiratory distress Auscultation: clear to auscultation bilaterally Cardio: Rate: regular rate Rhythm: regular rhythm Heart sounds: no gallops, no murmurs and no rubs GI: Palpation (GI): Soft to palpation and Other GI palpation findings present ( Nontender) Auscultation: normal bowel sounds Neuro: Other: Speech and language intact, Left-sided strength 5/5, right sided 4/5, with mild facial droop. No field cut Extrem: General: Yes no pedal edema, No clubbing and No cyanosis Results Labs 07/27/23 05:44 07/27/23 05:44 Labs: Short CBC 07/26/23 07/27/23 Range/Units 19:42 05:44 WBC 9.9 8.6 (4.8-10.8) X10*3/uL Hgb 12.6 12.4 (12.0-16.0) g/dl Hct 37.2 37.7 (37.0-47.0) % Plt Count 271 255 (160-400) X10*3/uL BMP 07/26/23 07/27/23 19:42 05:44 Sodium 139 138 Potassium 3.4 3.5 Chloride 100 105 Carbon Dioxide 29 25 BUN 17 H 15 Creatinine 0.73 0.62 Calcium 9.4 9.1 Cardiac Enzymes 07/26/23 Range/Units 19:42 Total Creatine Kinase 65 (26-140) U/L Liver Function 07/27/23 Range/Units 05:44 Total Bilirubin 0.3 (0.0-1.0) mg/dL AST 17 (5-31) U/L ALT 13 (0-31) U/L Alkaline Phosphatase 59 (39-117) U/L Albumin 4.1 (3.5-5.0) g/dL Assessment and Plan (1) Cerebrovascular accident: Status: Acute Acute ischemic infarct left hemisphere, s/p TNK. CTA head and neck negative for significant stenosis or occlusion. MRI pending. Echo pending PT OT, Aspirin 81mg/ day from tomorrow. Optimize statins. (2) Hyperlipidemia: Status: Acute Plan Assessment: 58-year-old lady admitted with acute treated weakness /CVA, now status post embolic 6 with improvement, but not complete resolution of her right-sided weakness Plan: Neuro: acute severe status post thrombolytics. Neurology service care appreciated. MRI is pending. PT/ OT/ speech therapy. Cardiac: No acute issues. Pulmonary: No acute issues. Renal: No acute issues. Endo: No acute issues. GI: No acute issues. ID: No acute issues Heme/Onc: No acute issues. Psych: No acute issues. Miscellaneous: No acute issues. Prophylaxis: pneumatic compression Diet: pending swallow evaluation Procedures Date of Service Date of Service: 07/27/23
[2023-07-27] MEDS: Midazolam HCl/PF 2 MG/2 ML VIAL 0.5 MG IVPUSH (12:17)
[2023-07-27 16:19] LABS: Glucose, Whole Blood 90 mg/dL (60-115)
--- NOTE | 2023-07-27 16:31 | MHC.SL.SWA ---
Speech Pathologist Impression: Risk of Aspiration Due to: Neurological Condition Dysphasia Diet Status: Liquid Consistency and Strategies for Safe Swallow: Liquid Intake Recommendation: Thin Liquid Intake Strategies: Small Sips Solid Food Consistency: Dietary Recommendations: Chopped/Advanced (NDD3) Additional Modifications to Solid Foods: Oral Medication Intake: Whole with Puree Please contact the pharmacy regarding appropriate crushable or liquid drug formulations that are available whenever modified delivery is recommended. Compensatory Strategies and Precautions to be Taken for Safe Swallow: Sitting Upright (90 deg) Liquids from Cup Liquids from Wide Cup Small Bites and Sips Alternate Liquids/Solids Rate of Ingestion Change Supervision While Eating and Drinking for Safe Swallow: Total Assistance (1:1) Foods to Avoid: Swallowing Recommended Treatments: Compens. Strategy Educat. Recommendation for Speech: Inpatient Speech Therapy Speech Therapy through Rehab Facility Comment: Recommend Frequency/Duration: Date Range for Service Req: Timeline to reassess: Architect Intern Clinican/Clinical Fellow: Supervisory Statement: I have reviewed and agree with the student/clinical fellow's documentation: Speech Language Pathologist:
[2023-07-27] MEDS: Acetaminophen 325 MG TABLET 650 MG PO (17:55)
[2023-07-27] MEDS: Atorvastatin Calcium 80 MG TABLET PO (20:38)
[2023-07-27] MEDS: Amitriptyline HCl 10 MG TABLET PO (20:38)
[2023-07-27 21:01] LABS: Glucose, Whole Blood 96 mg/dL (60-115)
[2023-07-28] VITALS: BP 111/53; PULSE 68; RESP 18; TEMP 36.8; O2SAT 96
[2023-07-28 04:00] VITALS: BP 119/60; PULSE 77; RESP 18; TEMP 36.7; O2SAT 98
[2023-07-28] MEDS: Acetaminophen 325 MG TABLET 650 MG PO ×2 (04:35→10:53)
[2023-07-28] MEDS: LORazepam 0.5 MG TABLET PO (04:35)
[2023-07-28] MEDS: Levothyroxine Sodium 112 MCG TABLET PO (04:35)
[2023-07-28 06:00] VITALS: BMI 23.8
[2023-07-28 07:16] LABS: Glucose, Whole Blood 86 mg/dL (60-115)
[2023-07-28 07:27] LABS: MANUAL DIFF FLAG NO
[2023-07-28 07:31] LABS: Basophils Absolute Auto 0.1 X10*3/uL (0.0-0.2); Basophils Percent Auto 0.7 % (0-2); Eosinophils Absolute Auto 0.2 X10*3/uL (0.0-0.4); Eosinophils Percent Auto 2.8 % (0-4); Hematocrit 38.4 % (37.0-47.0); Hemoglobin 12.8 g/dl (12.0-16.0); Imm Gran Abs Auto 0.02 X10*3/uL (0.00-0.03); Imm Gran Pct Auto 0.3 % (0.0-0.4); Lymphocytes Absolute Auto 2.7 X10*3/uL (1.2-4.9); Lymphocytes Percent Auto 39.6 % (20-40); Mean Corpuscular HGB Conc 33.3 g/dl (31.0-35.0); Mean Corpuscular Hemoglobin 29.6 pg (27.0-33.0); Mean Corpuscular Volume 88.9 fL (80.0-98.0); Monocytes Absolute Auto 0.6 X10*3/uL (0.1-1.2); Monocytes Percent Auto 8.8 % (2-11); Neutrophils Absolute Auto 3.3 x10*3/uL (2.0-8.3); Neutrophils Percent Auto 47.8 % (45-73); Platelet Count 246 X10*3/uL (160-400); Red Blood Count 4.32 X10*6/uL (4.20-5.50); Red Cell Distribution Width 12.9 % (11.0-16.0); White Blood Count 6.8 X10*3/uL (4.8-10.8)
[2023-07-28 07:44] VITALS: BP 108/61; PULSE 66; RESP 20; TEMP 36.6; O2SAT 98
[2023-07-28 07:49] LABS: Albumin Level 4.1 g/dL (3.5-5.0); Anion Gap 12 (12-20); Blood Urea Nitrogen 14 mg/dL (9-16); Calcium 9.3 mg/dL (8.4-10.2); Carbon Dioxide 25 mmol/L (22-29); Chloride 106 mmol/L (96-108); Creatinine Clr Calc Pharmacy 91.8; Estimated Glomerular Filt Rate > 60; Glucose Random 85 mg/dL (60-115); Magnesium 1.8 mg/dL (1.6-2.6); Phosphorus 3.5 mg/dL (2.7-4.5); Potassium 3.6 mmol/L (3.3-5.1); Sodium 139 mmol/L (135-145)
[2023-07-28 08:36] VITALS: BP 108/61; PULSE 66; O2SAT 98
[2023-07-28] MEDS: Aspirin Enteric Coated 81 MG TABLET.DR PO (08:47)
[2023-07-28] MEDS: Escitalopram Oxalate 20 MG TABLET PO (08:47)
[2023-07-28] MEDS: 0.9 % Sodium Chloride Flush 3 ML SYRINGE IVFLUSH (08:50)
[2023-07-28 10:55] LABS: Glucose, Whole Blood 82 mg/dL (60-115)
[2023-07-28 11:18] VITALS: BP 104/61; PULSE 76; RESP 18; TEMP 36.7; O2SAT 97
--- NOTE | 2023-07-28 12:54 | MHC.STROKE ---
I MET TODAY WITH THE PATIENT TO FOLLOW UP ON HER STROKE EDUCATION AND REVIEW HER TEST RESULTS, LABS, AND THE STROKE EDUCATION BOOKLET, AND POWER POINT HANDOUTS, HER AND 2 DAUGHTER WERE THERE. I ANSWERED ALL OF THEIR QUESTIONS. I REVIEWED HER CASE WITH DR. SANCHEZ AND HE WILL ROUND AGAIN BEFORE SHE IS DISCHARGED. WE DISCUSSED HER HISTORY OF COVID X2, MIGRAINES, AND POSSIBLY WORKING HER UP FOR HYPER-COAG AN OUTPATIENT. THIS CAN BE CONSIDERED A CRYPTOGENIC STROKE AT THIS TIME. I HAVE BEEN MEETING WITH HER DAILY AND SHE IS DOING BETTER TODAY. HER INITIAL [id number] WAS 25MINUTES. AND ONSET TO TNK = 70 MINUTES. NO COMPLICATIONS FROM TNK. I ANSWERED ALL OF THEIR QUESTIONS. ALL STROKE MEASURES MET.
[2023-07-28] MEDS: Butalb/Acetamin/Caff 50/325/40 TABLET 1 TAB PO (13:15)
--- NOTE | 2023-07-28 14:19 | PM.DS ---
DS: Providers Provider Date of Service: 07/28/23 Date of admission: 07/26/23 22:27 Primary care physician: Scot Santiago PA-C Consults: 07/26/23 22:27 Consult to Neurology Routine Consulting Provider: Efren Osborne Reason for consultation: stroke post TNK Has provider been notified: Yes DS: Diagnosis Discharge Diagnosis (1) Cerebrovascular accident: Status: Acute (2) Hyperlipidemia: Status: Acute DS: Summary Hospital Course Hospital Course: Admission note HPI The patient is a 58 years old female with history of hyperlipidemia,? hypothyroidism, mitral regurgitation, who presented with stroke symptoms. Family noticed right facial droop and slurred speech, she also started feeling dizzy and feeling hot. EMS noted right-sided weakness slurred speech and right facial droop POC was 107 blood pressure 118/60 no headache no seizures activity no significant anxiety? In the emergency room, patient vitals are stable. Laboratory data with no significant abnormalities.? Neurology,? ? consulted by emergency physician,? okay to get TNK.? TNK administer at 1945 Hospital course The patient waas admitted to ICU of 07/26 for right sided weakness and speech problem. Initial CT scan negative for acute findings. Received Tenecteplace in ED and monitored in ICU with significant improvement in her right sided weakness and speech. MRI did not show any acute findings but mild chronic white matter microangiopathy, no acute stroke found. She was evaluated by neurologist who recommended ASA and statin. seen by PT and AUTOMOTIVE HEAVY MECHANIC who will continue to follow her at home. Start Aspirin 81 mg daily Increase Atorvastatin to 80 mg at night To do physical and speech therapy at home. Time Attestation Discharge coordination time: Greater than 30 minutes Quality: Safe Use of Opioids Does Pt have an Active Cancer Diagnosis on the Problem List?: No Quality: Stroke Does the patient have a stroke diagnosis?: No Physical Exam Vital Signs: Vital Signs: Last Vital Signs Temp 98.1 F 07/28/23 11:18 Pulse 76 07/28/23 11:18 Resp 18 07/28/23 11:18 BP 104/61 07/28/23 11:18 Pulse Ox 97 07/28/23 11:18 O2 Del Method Room Air 07/28/23 11:18 BMI result Body Mass Index 23.8 Const: Other: Constitutional : Awake, interactive, not in distress Neck : Normal inspection, Supple Cardiovascular : RRR, no JVP, no lower extremity edema Respiratory : good bilateral air entry, no crackles, wheezes or rhonchi Gastrointestinal: soft, lax, Normal bowel sounds, Non tender Skin : Warm, Dry Neurological : Alert & oriented x3, No focal deficit DS: Data Data Completed and Pending Labs on day of discharge: Laboratory Results - last 24 hr 07/27/23 07/27/23 07/28/23 16:12 20:33 07:11 WBC RBC Hgb Hct MCV MCH MCHC RDW Plt Count MPV Immature Gran % (Auto) Neut % (Auto) Lymph % (Auto) [place] % (Auto) Eos % (Auto) Baso % (Auto) Lymph # (Auto) [place] # (Auto) Eos # (Auto) Baso # (Auto) Abs Immat Gran (auto) Absolute Neuts (auto) Absolute Nucleated RBC Nucleated RBC % (auto) Sodium Potassium Chloride Carbon Dioxide Anion Gap BUN Creatinine Estim Creat Clear Calc Estimated GFR POC Glucose 90 96 86 Random Glucose Calcium Phosphorus Magnesium Albumin 07/28/23 07/28/23 07:12 10:51 WBC 6.8 RBC 4.32 Hgb 12.8 Hct 38.4 MCV 88.9 MCH 29.6 MCHC 33.3 RDW 12.9 Plt Count 246 MPV 10.0 Immature Gran % (Auto) 0.3 Neut % (Auto) 47.8 Lymph % (Auto) 39.6 [place] % (Auto) 8.8 Eos % (Auto) 2.8 Baso % (Auto) 0.7 Lymph # (Auto) 2.7 [place] # (Auto) 0.6 Eos # (Auto) 0.2 Baso # (Auto) 0.1 Abs Immat Gran (auto) 0.02 Absolute Neuts (auto) 3.3 Absolute Nucleated RBC 0.000 Nucleated RBC % (auto) 0.0 Sodium 139 Potassium 3.6 Chloride 106 Carbon Dioxide 25 Anion Gap 12 BUN 14 Creatinine 0.61 Estim Creat Clear Calc 91.8 Estimated GFR > 60 POC Glucose 82 Random Glucose 85 Calcium 9.3 Phosphorus 3.5 Magnesium 1.8 Albumin 4.1 Imaging MRI - head: Radiologist's impression: ITS Impressions Head CT 07/26/23 19:30 IMPRESSION: Unremarkable exam. This critical result was discussed with Dr. Snyder at 1947 hours on 07/26/2023. It was ascertained that the content and urgency of the report was understood at the time of direct communication. Head/Neck CTA 07/26/23 19:47 IMPRESSION: 1. No arterial high grade stenosis or large vessel occlusion in the head or neck. 2. Circumferential wall thickening of the upper thoracic esophagus which may reflect esophagitis. Impression #1 was communicated to GONZÁLEZ Norton on 07/26/2023 at 8:[address] 07/27/23 09:04 IMPRESSION: No acute intracranial pathology. Brain MRI 07/27/23 13:16 IMPRESSION: No acute intracranial process. Mild chronic white matter microangiopathy. Head CT 07/27/23 19:04 IMPRESSION: No acute intracranial hemorrhage or territorial loss of east-white differentiation. Discharge Plan Discharge Anticipated Discharge Date/Time: 07/28/23 13:58 Patient Disposition: Home Health Service Discharge Diagnosis: Cerebrovascular accident Referrals: Scot Santiago PA-C [Primary Care Provider] - 1 Week Discharge Medications: New atorvastatin 80 mg Tablet 80 mg PO BEDTIME Qty: 30 0RF aspirin 81 mg Tablet,Delayed Release (Dr/Ec) 81 mg PO DAILY Qty: 30 0RF Continued levothyroxine 112 mcg tablet 112 mcg PO DAILY amitriptyline 10 mg tablet 10 mg PO BEDTIME citalopram 40 mg tablet 40 mg PO DAILY lorazepam 0.5 mg tablet 0.5 mg PO Q6H PRN (Reason: Anxiety) multivitamin with minerals Capsule 1 cap PO DAILY Discharge Orders: Discharge Order (Routine); Ordered 07/28/23 Ordered By: Master Elder Diet: Advance to usual diet Activity on Discharge: As tolerated Stand Alone Forms: Patient Portal Discharge page Care Plan Goals: Read below Health Concerns: Read below Plan of Treatment: Read below Assessment: You were admitted for treatment of acute weakness suspecious for stroke. Treated with thrombolytics with good response as your strength improved back as you were evaluated by physical therapy team. you continue to report speech problems which will be followed as outpatient as well. Start Aspirin 81 mg daily Increase Atorvastatin to 80 mg at night To do physical and speech therapy at home. Patient Instructions: Ischemic Stroke (DC)
--- NOTE | 2023-07-28 14:29 | W.MHC.F2F ---
Service Date Service Date: 07/28/23 Encounter Date of encounter: 07/28/23 Reasons for Services Signs and symptoms assessed: CVA Reason for correction: teach disease management Reason for physical therapy: home safety and mobility and therapeutic exercises Reason for speech therapy: speech impairment Homebound: Leaving the home is medically contraindicated at this time without the asist of a device and/or another person due th the listed conditions above and below. Reason homebound: unable to drive Certification: Based on the above findings, I certify that this patient is confined to the home and needs intermittent correction care, physical therapy and/or speech therapy, or continues to need occupational therapy. The patient is under my care, and I have initiated the establishment of the plan of care. The patient will be followed by a physician who will periodically review the plan of care. Time Spent With Patient Time: Total time managing care of this patient today ____ minutes.
--- NOTE | 2023-07-28 15:04 | MHC.SLD.DC ---
Date of Plan of Treatment: 07/27/23 Onset of Symptoms/Illness: 07/27/23 Date Treatment Started: 07/27/23 Medical Diagnosis: R-side weakness Primary Speech Language Diagnosis: F80.1 Expressive language disorder Secondary Speech Language Diagnosis: Date Discharged from Speech: Pre-Treatment Diet: NDD3, thin Assessment: Patient seen for cognitive-linguistic screening as a follow up to INTELLIGENCE OFFICER evaluation on 07/27. Patient was administered short form of BNT and parts of the short form BDAE; specifically oral expression tasks. Across oral expression and conversational speech, patient presented with intermittent disfluent speech marked by sound repetitions, word repetitions, and revisions. Patient scored 14/15 on the BNT; requiring multiple choice options to produce the response nikolski. Patient was shown the Cookie Theft picture. She responded in full sentences with no paraphasias or word finding difficulty noted. Patient required minimal prompting to comment on the water overflowing from the sink, however noticed the stool about to fall right away. Patient did not any difficulties with receptive language. Changes made to current diet?: Post Tx Diet: Upgrade to regular solids Liquid Thickness Recommendation: Thin Liquid Intake Strategies: Small Sips Solid Food Consistency: Regular solids Dysphagia Medication Administration: Whole with Puree Compensatory Strategies for Safe Swallow: Sitting Upright (90 deg) Liquids from Cup Liquids from Wide Cup Small Bites and Sips Alternate Liquids/Solids Rate of Ingestion Change Supervision While Eating or Drinking: Total Assistance (1:1) Patient tolerated regular lunch tray of grilled cheese. She reported that chewing on the right side still feels slightly off however reports preference for regular solid consistency. Machinery Mover Clinician/Clinical Fellow: No I have reviewed/agreed with student/fellow documentation: N/A Speech/Language Pathologist: Karen Adames M.A., CCC-INTELLIGENCE OFFICER
--- NOTE | 2023-07-28 15:08 | MHC.CM.PN ---
Pt has been medically cleared for DC, she will go home via family, referred for VNA services from [facility].
== END 2023-07-28 15:27 | disposition home health service (06) | DRG 45 ==
LOC: HO.ED 21:01 → HO.EDOVER 22:42 → HO.ICU 23:46 → HO.IMC 07-27 12:50
PROVIDERS: Internal Medicine; Internal Medicine Pulmonary Disease; Admitting Provider Registered Nurse Community Health; Emergency Provider Internal Medicine; PCP Physician Assistant Medical; Visit Provider Student in an Organized Health Care Education/Training Program
DX: I63.9 Cerebral infarction, unspecified (principal); E03.9 Hypothyroidism, unspecified; E78.5 Hyperlipidemia, unspecified; I10 Essential (primary) hypertension; R29.708 NIHSS score 8; R29.810 Facial weakness; Z87.891 Personal history of nicotine dependence; Z79.890 Hormone replacement therapy; Z79.899 Other long term (current) drug therapy
CPT/HCPCS: 36415; 70450; 70496; 70498; 70551; 80048; 80053; 80061; 82040; 82550; 82947; 83735; 84100; 84443; 84484; 85025; 85610; 85730; 92507; 93005; 93306; 93356; 97110; 97116; 97162; 97166; 97535; 99285; J2060; J2250; J3101; J3480; Q9967

== ENCOUNTER 2023-07-26 22:27 | Outpatient (BNV) | payer OTHER, SELFPAY | END 2023-07-27 07:00 | PROVIDERS: Admitting Provider Registered Nurse Community Health; Emergency Provider Internal Medicine; PCP Physician Assistant Medical; Visit Provider Internal Medicine | DX: I51.9 Heart disease, unspecified (principal) | CPT/HCPCS: 93306 ==

== ENCOUNTER → 2023-07-26 22:27 | Outpatient (BNV) | payer OTHER, SELFPAY | PROVIDERS: Admitting Provider Registered Nurse Community Health; Emergency Provider Internal Medicine; PCP Physician Assistant Medical; Visit Provider Registered Nurse Community Health | DX: I63.9 Cerebral infarction, unspecified (principal) | CPT/HCPCS: 99222 ==

== ENCOUNTER → 2023-07-26 22:27 | Outpatient (BNV) | payer OTHER, SELFPAY | PROVIDERS: Admitting Provider Registered Nurse Community Health; Emergency Provider Internal Medicine; PCP Physician Assistant Medical; Visit Provider Internal Medicine Pulmonary Disease | DX: I63.9 Cerebral infarction, unspecified (principal); E78.5 Hyperlipidemia, unspecified | CPT/HCPCS: 99232 ==

== ENCOUNTER → 2023-07-26 22:27 | Outpatient (BNV) | payer OTHER, SELFPAY | PROVIDERS: Admitting Provider Registered Nurse Community Health; Emergency Provider Internal Medicine; PCP Physician Assistant Medical; Visit Provider Student in an Organized Health Care Education/Training Program | DX: I63.9 Cerebral infarction, unspecified (principal); E78.5 Hyperlipidemia, unspecified | CPT/HCPCS: 99239; G0180 ==

== ENCOUNTER 2024-04-13 09:00 | Outpatient (AMB) | payer OTHER, SELFPAY ==
--- NOTE | 2024-04-13 09:01 | MHC.OFFVIS ---
Vital Signs 04/13/24 09:03 Height 5 ft 10 in Weight 137 lb 9.095 oz BMI 19.7 BP 104/62 Blood Pressure Location Lt brachial Position Sitting Pulse 62 Pulse Source Pulse Oximeter Pulse Oximetry (%) 94 Oxygen Delivery Method Room Air Intake Visit Reasons: right hip arthritis/CM Intake Note: Patient presents for right hip arthritis. Increase pain in joints and especially in right hip. Allergies Sulfa (Sulfonamide Antibiotics) [SULFA (SULFONAMIDE ANTIBIOTICS)] Allergy (Intermediate, Verified 04/13/24 09:04) HIVES trazodone Allergy (Unknown, Verified 04/13/24 09:04) Unknown Medication List - Last Reconciled 04/13/24 by Bernadine Falcon MD amitriptyline 10 mg PO BEDTIME aspirin 81 mg PO DAILY atorvastatin 80 mg PO BEDTIME citalopram 40 mg PO DAILY levothyroxine 112 mcg PO DAILY lorazepam 0.5 mg PO Q6H PRN multivitamin with minerals 1 cap PO DAILY HPI Comments Details: This is a 58-year-old female with generalized osteoarthritis who presents for follow-up. She used to follow-up with Dr. Flores in the past. She states that she feels her arthritis is worse. She has pain the outside of her right hip, worse with activity. She states that she has had multiple injections in that area by Dr. Flores in the past, she stated that 1 injection hit a nerve she also had left SI joint injections pain management. She continues to have intermittent pain at the base of her thumbs slightly worse on the right. She takes Tylenol some nights. She wonders about ibuprofen. She continues to be active [facility] Medical History Mitral valve regurgitation Reactive airway disease Insomnia Chronic pain Anxiety and depression Panic disorder Hypothyroidism Autoimmune thyroiditis Hyperlipidemia Surgical History Hx of vaginal hysterectomy Family History Mother Emphysema of lung Arthritis Father Myocardial infarct Maternal Grandmother Arthritis CVA (cerebral vascular accident) Maternal Grandfather Lung cancer Myocardial infarct Social History Household Members: Spouse Housing: Condominium Do you presently have visiting nurse or other home services: No Alcohol intake: never Patient Tobacco Use Status: Former Tobacco user Years Smoked: Quit 4 years ago e-Cigarette/Vaping Use: Never Used service: No Current occupational status: retired 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 Review of [place] [facility] [place] arthralgias, Reports limited range of motion and Reports stiffness Physical Exam Vital Signs: Last Vital Signs Pulse 62 04/13/24 09:03 BP 104/62 04/13/24 09:03 Pulse Ox 94 04/13/24 09:03 Oxygen Delivery Method Room Air 04/13/24 09:03 BMI result Body Mass Index 19.7 Const General: cooperative, healthy appearing and comfortable Nutritional Appearance: average body habitus and well nourished Orientation/consciousness: patient oriented x3 Limitations: no limitations HEENT Head: Yes normocephalic and Yes atraumatic Mouth: moist mucous membranes Resp Effort & Inspection: normal respiratory effort and able to speak in complete sentences Auscultation: clear to auscultation bilaterally Skin General skin exam: no rashes or lesions noted Neuro General: patient oriented x3 Extrem Other: Osteoarthritic changes of both hands with no active synovitis Some soreness at the base of both thumbs Right trochanteric bursa area tenderness with negative Silvano's test Negative straight leg raise test bilaterally No groin pain with foot inversion bilaterally No groin pain with flexion adduction and internal rotation of the hips bilateral Assessment & Plan Assessment & Plan (1) Trochanteric bursitis, right hip: Code(s): M70.61 - Trochanteric bursitis, right hip Category: Medical Plan: Continues to be symptomatic. Patient not interested in formal PT or pain management evaluation at the time. I provided patient with a printout of home exercises. Advised patient that if her symptoms get worse she should pain management (2) Osteoarthritis of hands, bilateral: Code(s): M19.041 - Primary osteoarthritis, right hand; M19.042 - Primary osteoarthritis, left hand Category: Medical Qualifiers: Osteoarthritis type: primary Qualified Code(s): M19.041 - Primary osteoarthritis, right hand; M19.042 - Primary osteoarthritis, left hand Plan I spent 18 minutes reviewing patient's chart, evaluating patient, counseling patient and documenting in the chart Coding Level of Care Code Est Pt Level 3 (48118) Diagnoses Trochanteric bursitis, right hip M70.61 Primary osteoarthritis of both hands M19.041; M19.042 Osteoarthritis type: primary
[2024-04-13 09:03] VITALS: BP 104/62; PULSE 62; O2SAT 94; BMI 19.7
== END 2024-04-13 09:27 | disposition home or self-care (01) ==
PROVIDERS: PCP Physician Assistant Medical; Visit Provider Student in an Organized Health Care Education/Training Program
DX: M70.61 Trochanteric bursitis, right hip (principal); M19.041 Primary osteoarthritis, right hand; M19.042 Primary osteoarthritis, left hand
CPT/HCPCS: 99213

== ENCOUNTER → 2024-04-13 09:00 | Outpatient (BNVA) | payer OTHER, SELFPAY | PROVIDERS: PCP Physician Assistant Medical; Visit Provider Student in an Organized Health Care Education/Training Program ==